=== PATIENT | female | born 1940 | race Caucasian/White ===

== ENCOUNTER 2017-05-07 11:00 | Observation (INO) | payer OTHER, BC ==
[~2017-05-07] VITALS: Ht 147.3 cm; Wt 98.2 kg
[~2017-05-07 11:00] MED LIST: ALLOPURINOL100 MG PO; HYDROCHLOROTHIA25 MG PO; Indocin PO; LOSARTAN POTAS100 MG PO; METFORMIN HCL500 MG PO; OMEPRAZOLE20 MG PO; PRAVASTATIN SOD40 MG PO; VERAPAMIL HCL120 M2 PO; Vicodin,Norco 5/325 PO
[2017-05-07 13:02] LABS: HEMATOCRIT 45.5 % (36.0-46.0); HEMOGLOBIN 15.3 G/DL (11.9-15.5); MCH 30.1 PG (29.0-34.0); MCHC 33.6 G/DL (30.0-36.0); MCV 89.6 FL (83-99); PLATELET COUNT 87 K/uL (156-360); RBC DIS.WIDTH-CV 12.3 % (11.8-14.6); RBC DIS.WIDTH-SD 40.5 % (39-53); RED BLOOD COUNT 5.08 M/uL (3.80-5.20); WHITE BLOOD COUNT 6.1 K/uL (4.1-10.2)
[2017-05-07 13:41] LABS: TROP-I INTERPRETATION NEGATIVE; TROPONIN-I < 0.01 ng/mL (0.0-0.30)
[2017-05-07 13:47] LABS: CHLORIDE 106 mEq/L (99-109); CREATININE 0.7 mg/dL (0.6-1.3); GFR ESTIMATE (CALCULATED) > 59 mL/min/; GLUCOSE 77 mg/dL (70-99); POTASSIUM 4.2 mEq/L (3.7-5.4); SODIUM 141 mEq/L (136-147); UREA NITROGEN (BUN) 20 mg/dL (9-23)
[2017-05-07 14:40] LABS: PTT 21.3 SEC (25-37)
[2017-05-07] MEDS ORDERED: METFORMIN HCL500 MG PO (15:03)
[2017-05-07] MEDS ORDERED: METRONIDAZOLE45 G1 TP (15:03)
[2017-05-07] MEDS ORDERED: ADULT ASPIRIN R81 MG PO (15:03)
[2017-05-07] MEDS ORDERED: TRAMADOL HCL50 MG PO (15:03)
[2017-05-07 17:53] VITALS: BP 133/82
[2017-05-07 20:14] LABS: TROP-I INTERPRETATION NEGATIVE; TROPONIN-I < 0.01 ng/mL (0.0-0.30)
[2017-05-07 20:20] VITALS: BP 118/67
[2017-05-07 21:31] LABS: HDL CHOLESTEROL 40 MG/DL (Desirable>=50); LDL CHOLESTEROL 102 mg/dL (Desirable<100); NON-HDL CHOLESTEROL 121 mg/dL (Desirable<160); TOTAL CHOLESTEROL 161 mg/dL (Desirable<200); TRIGLYCERIDES 93 MG/DL (Normal: <150)
[2017-05-08 04:50] VITALS: BP 122/58
[2017-05-08 08:00] VITALS: BP 127/68; BP 1287/68
[2017-05-08 08:49] LABS: HEMATOCRIT 40.9 % (36.0-46.0); MCH 29.3 PG (29.0-34.0); MCHC 32.5 G/DL (30.0-36.0); MCV 90.1 FL (83-99); RBC DIS.WIDTH-CV 12.7 % (11.8-14.6); RBC DIS.WIDTH-SD 41.8 % (39-53); RED BLOOD COUNT 4.54 M/uL (3.80-5.20); WHITE BLOOD COUNT 6.4 K/uL (4.1-10.2)
[2017-05-08 08:51] LABS: HEMOGLOBIN 13.3 G/DL (11.9-15.5); PLATELET COUNT 251 K/uL (156-360)
[2017-05-08 10:13] LABS: HEMOGLOBIN A1c (GLYCOHEMOGLOB) 5.6 % (Below 5.7)
[2017-05-08 12:00] VITALS: BP 90/53
== END 2017-05-08 13:55 | disposition home or self-care (01) ==
LOC: EME 11:00 → 5SOUTH 15:06 → EDOF 15:06 → 5SOUTH 15:06 → ENRESERV 15:08 → 5SOUTH 17:10
PROVIDERS: Emergency Medicine; Internal Medicine; Physician Assistant Medical
DX: R20.0 Anesthesia of skin (principal); E11.9 Type 2 diabetes mellitus without complications; I10 Essential (primary) hypertension; E78.5 Hyperlipidemia, unspecified; E66.9 Obesity, unspecified; Z68.42 Body mass index [BMI] 45.0-49.9, adult; M19.90 Unspecified osteoarthritis, unspecified site; J30.9 Allergic rhinitis, unspecified; Z91.040 Latex allergy status; Z81.1 Family history of alcohol abuse and dependence; D69.6 Thrombocytopenia, unspecified; K21.9 Gastro-esophageal reflux disease without esophagitis; Z79.84 Long term (current) use of oral hypoglycemic drugs
CPT/HCPCS: 70450; 70551; 80048; 80061; 82948; 83036; 84484; 85027; 85610; 85730; 93005; 93306; 93880; 99281; 99285; G0378; G8978 GP CI; G8979 GP CH; G8980 GP CI; J1650; J2060